=== PATIENT | female | born 1990 | race Caucasian/White ===

== ENCOUNTER 2016-09-09 19:22 | Outpatient (CLI) | payer MEDICAID ==
[2016-09-09 19:59] LABS: AMORPHOUS SEDIMENT,URINE TRACE /HPF; APPEARANCE,URINE CLOUDY; BILIRUBIN,URINE NEGATIVE (NEGATIVE); GLUCOSE, URINE NEGATIVE (NEGATIVE); KETONES,URINE NEGATIVE (NEGATIVE); LEUKOCYTE ESTERASE,URINE NEGATIVE (NEGATIVE); NITRITE,URINE NEGATIVE (NEGATIVE); PROTEIN,URINE NEGATIVE (NEGATIVE); URINE SPECIFIC GRAVITY 1.014; UROBILINOGEN,URINE NEGATIVE mg/dL (<2.0)
--- NOTE | 2016-09-09 20:01 | L&D Flow Sheet ---
LD Flowsheet Datetime Report Generated by CPN: 09/09/2016 20:00 Datetime: 09/09/2016 19:52 Pain Pain Scale: 2 (Marcelina Rosen RN) Pain Presence: Intermittent (Marcelina Rosen RN) Pain Type: Cramping; Contraction (Marcelina Rosen RN) Pain Location: Abdomen (Marcelina Rosen RN) Pain Goal: 0 (Marcelina Rosen RN) Pain Relief Measures: Comfort Measures (Marcelina Rosen RN) Pain Coping: Talking Through Contractions; Breathing Through Contractions (Marcelina [facility], RN) Vaginal Exam Vaginal Bleeding: None ([facility], RN) Maternal Assessment Level [facility] Consc[facility]: [facility] DTR's/Clonus: DTRs 1+; No Clonus ([facility], RN) Headache: Frontal ([facility], ) Breath Sounds, Left: Clear and Equal ([facility], ) Breath Sounds, Right: Clear and Equal ([facility], RN) Nausea/Vomiting: Denies ([facility], ) RUQ Epigastric Pain: Denies ([facility], ) Teaching Instructional Method: Verbal; Patient Instructed; Family/Support Person Instructed; Verbalized Understanding (Marcelina Rosen RN) Plan of Care: Plan of Care Discussed (Marcelina Rosen RN) Unit Routine: [place] to Room; Call Mello; Bed; Visiting Policy; Waiting Areas; Infant Security; Phone/Cell Phone Use; Photography; Unit Personnel; Handwashing; Flu/Illness Precautions; Monitoring; Safety/Fall Risk Prevention; Bathroom Privileges (Marcelina Rosen RN) Communication LaborFlag: Antepartum (QS system process) Datetime: 09/09/2016 19:51 Vital Signs NBP Sys/Maribeth/Mean (mmHg): 100 (QS system process) : 64 (QS system process) : 77 (QS system process) Pulse: 94 (QS system process) Communication LaborFlag: Antepartum (QS system process)
[2016-09-09 20:16] LABS: URINE BARBITURATES SCREEN NEGATIVE; URINE METHADONE SCREEN NEGATIVE; URINE PHENCYCLIDINE SCREEN NEGATIVE
[2016-09-09] MEDS ORDERED: ACETAMINOPHEN 325 MG TABLET PO ONE (20:17)
[2016-09-09] MEDS ORDERED: ACETAMINOPHEN 325 MG TABLET ONE (20:20)
--- NOTE | 2016-09-10 04:46 | L&D Discharge Summary ---
OB Discharge Summary Datetime Report Generated by CPN: 09/10/2016 04:45 DISCHARGE DIAGNOSIS Diagnosis/Symptoms: False Labor Diagnoses/Symptoms Other: vagianl bleeding stopped Treatment/Procedures Other: Ultrasound Gestation: 30.1 Number of Babies in Womb: 1 Parity: 2 DIET/ACTIVITY/RESTRICTIONS Diet: Regular Activity: Normal Activity Activity Restrictions: No Exercising; No Lifting; Minimize Walking; Minimize Stair Climbing; No Sexual Activity; Nothing in Vagina - [place], Tampons, [place] TEACHING/INSTRUCTIONS/REFERRALS Instructions Given To: Patient and mother Instructions Understood: Patient Verbalized Understanding; Support Person Verbalized Understanding Referrals: None Educational Materials- Other: Kick counts Dehydration DISCHARGE INFORMATION Discharged AMA: No Discharge Date/Time: 09/09/2016 20:37 Discharged To: Home Discharge Provider Name: DrGlory Vogel Accompanied By: Mother Discharge Method: Wheelchair Condition: Stable FOLLOW UP INFORMATION Follow Up With: [facility] Follow Up On: As Scheduled Follow Up Phone Number: [facility] - Comments: Discussed kick counts, dehydration and signs and symptoms of when to return to office or hospital with patient and mother. Patient and mother verbalized understanding. Discussed positive THC in urine with patient and mother and how this contributes to contractions and cramping with . Patient and mother verbalized understanding. Patient discharged home for false labor via wheelchair in stable condition. GENERAL INSTR-CALL PROVIDER IF: Contractions: Contractions or cramps become more frequent than 8 in one hour or 4 in 20 minutes; Regular painful contractions every 5 minutes or less for one hour. Time your contractions from the beginning of one to the beginning of the next Pressure: Pressure in your vagina or lower abdomen that may feel like the baby is pushing down Period Like Cramps: Period-like cramps or low dull backache that may come and go Cramps/Diarrhea: Abdominal cramps that may be accompanied by diarrhea Gush of Fluid/Blood: Gush of fluid or blood from your vagina (it is normal to have spotting after vaginal exam or intercourse) Vaginal Discharge: Change in the type or amount of vaginal discharge Decreased Movement: Your baby is not moving as much as usual- 4 movements in 1 hour after drinking and resting on side Temperature: Temperature greater than 100.0(F) orally
--- NOTE | 2016-09-10 04:46 | Antepartum Discharge Summary ---
Antepartum DC Datetime Report Generated by CPN: 09/10/2016 04:45 DIET/ACTIVITY/RESTRICTIONS Diet: Regular (09/09/2016 20:46:Marcelina Rosen, RN) Activity: Normal Activity (09/09/2016 20:46:Marcelina , RN) TEACHING/INSTRUCTIONS/REFERRALS Instructions Given To: Patient and mother (09/09/2016 20:46:Marcelina , RN) Instructions Understood: Patient Verbalized Understanding; Support Person Verbalized Understanding (09/09/2016 20:46:Marcelina Rosen RN) Referrals: None (09/09/2016 20:46:Marcelina Rosen RN) Educational Materials- Other: Kick counts Dehydration (09/09/2016 20:46:Marcelina Rosen RN) DISCHARGE INFORMATION Discharged AMA: No (09/09/2016 20:46:Marcelina Rosen RN) Discharge Date/Time: 09/09/2016 20:37 (09/09/2016 20:46:Marcelina Rosen RN) Discharged To: Home (09/09/2016 20:46:Marcelina Rosen RN) Discharge Provider Name: Dr. Vogel (09/09/2016 20:46:Marcelina Rosen RN) Accompanied By: Mother (09/09/2016 20:46:Marcelina Rosen RN) Discharge Method: Wheelchair (09/09/2016 20:46:Marcelina Rosen RN) Condition: Stable (09/09/2016 20:46:Marcelina Rosen RN) FOLLOW UP INFORMATION Follow Up With: [facility] (09/09/2016 20:46:Marcelina Rosen RN) Follow Up On: As Scheduled (09/09/2016 20:46:Marcelina Rosen RN) Follow Up Phone Number: [facility] - (09/09/2016 20:46:Marcelina Rosen RN) Comments: Discussed kick counts, dehydration and signs and symptoms of when to return to office or hospital with patient and mother. Patient and mother verbalized understanding. Discussed positive THC in urine with patient and mother and how this contributes to contractions and cramping with . Patient and mother verbalized understanding. Patient discharged home for false labor via wheelchair in stable condition. (09/09/2016 20:46:Marcelina Rosen RN) GENERAL INSTR-CALL PROVIDER IF: Contractions: Contractions or cramps become more frequent than 8 in one hour or 4 in 20 minutes; Regular painful contractions every 5 minutes or less for one hour. Time your contractions from the beginning of one to the beginning of the next (09/09/2016 20:46:Marcelina Rosen RN) Pressure: Pressure in your vagina or lower abdomen that may feel like the baby is pushing down (09/09/2016 20:46:Marcelina Rosen RN) Period Like Cramps: Period-like cramps or low dull backache that may come and go (09/09/2016 20:46:Marcelina Rosen RN) Cramps/Diarrhea: Abdominal cramps that may be accompanied by diarrhea (09/09/2016 20:46:Marcelina Rosen RN) Gush of Fluid/Blood: Gush of fluid or blood from your vagina (it is normal to have spotting after vaginal exam or intercourse) (09/09/2016 20:46:Marcelina Rosen RN) Vaginal Discharge: Change in the type or amount of vaginal discharge (09/09/2016 20:46:Marcelina Rosen RN) Decreased Movement: Your baby is not moving as much as usual- 4 movements in 1 hour after drinking and resting on side (09/09/2016 20:46:Marcelina Rosen RN) Temperature: Temperature greater than 100.0(F) orally (09/09/2016 20:46:Marcelina Rosen RN) Hypertension Signs/Symptoms: Severe headache which is not relieved 30 minutes after taking Tylenol(Acetaminophen); Blurry vision or spots before your eyes; Severe heartburn or pain on the upper right side of your abdomen that is not relieved by an antacid; Increased swelling in your face, hands or feet (09/09/2016 20:46:Marcelina Rosen RN) Urinary Output: Decreased urinary output or dark colored urine (09/09/2016 20:46:Marcelina Rosen RN)
--- NOTE | 2016-09-10 04:46 | L&D Current Admission ---
Current Admit Datetime Report Generated by CPN: 09/10/2016 04:45 ADMISSION INFORMATION Chief Complaint: Contractions (09/09/2016 19:52:Marcelina Rosen, MIRA)
--- NOTE | 2016-09-10 04:46 | L&D Flow Sheet ---
LD Flowsheet Datetime Report Generated by CPN: 09/10/2016 04:45 Datetime: 09/09/2016 20:33 Patient Care Patient Care Comments: Discussed positive THC in urine with patient and mother and how THC causes contractions and cramping; patient and mother verbalized understanding. (Marcelina Field, RN) Datetime: 09/09/2016 20:32 Additional Nursing Comments: Pt is okay for discharge. F/U in office as scheduled. Not in labor. (Rita Pires RN) Datetime: 09/09/2016 20:28 Communication Communication: RN Reviewed Strip; Call/Page Placed to Provider (Marcelina Rosen RN) Communication Comments: Informed Dr. Vogel of patient's complaint of 8 out of 10 for pain with last contraction; orders were drink lots of fluid, give Tylenol and if pain continues followup with office in morning. (Marcelina Rosen RN) Datetime: 09/09/2016 20:25 Patient Care Patient Care Comments: Discussed kick counts and dehydration with patient and mother; both verbalized understanding. (Marcelina Field, RN) Datetime: 09/09/2016 20:23 Uterine Activity Monitor Mode: External; Palpation (Marcelina Field, RN) Frequency (min): 5-6 (Marcelina Field, RN) Quality: Mild (Marcelina Field, RN) Duration (sec): 50-90 (Marcelina Field, RN) Resting Tone ([place]): Relaxed (Marcelina Field, RN) Assessment A Monitor Mode: External US ([facility], RN) FHR Baseline Rate : 130 ([facility], RN) Variability: Moderate 6-25 bpm [facility] Accelerations: 15X15 ([facility], RN) Decelerations: None (Marcelina Field, RN) Datetime: 09/09/2016 20:21 Vital Signs NBP Sys/Maribeth/Mean (mmHg): 111 (QS system process) : 63 (QS system process) : 81 (QS system process) Pulse: 92 (QS system process) LaborFlag: Antepartum (QS system process) Datetime: 09/09/2016 20:07 Communication Communication: RN Reviewed Strip; Call/Page Placed to Provider (Marcelina Rosen RN) Communication Comments: Orders received for Tylenol 650 mg PO for pain. (Marcelina Rosen RN) Communication Comments: Orders received to keep patient on monitor for 20 minutes and discharge home for false labor. (Marcelina Rosen RN) Communication Comments: Informed Dr. Vogel of patient's complaint, history, urine results and FHR/Contractions ([facility]) Datetime: 09/09/2016 19:52 Pain Pain Scale: 2 ([facility]) Pain Presence: Intermittent ([facility]) Pain Type: Cramping; Contraction ([facility]) Pain Location: Abdomen ([facility]) Pain Goal: 0 ([facility]) Pain Relief Measures: Comfort Measures ([facility]) Pain Coping: Talking Through Contractions; Breathing Through Contractions ([facility]) Vaginal Exam Vaginal Bleeding: None (Marcelina Field, RN) Maternal Assessment Level of Consciousness: Fully Conscious (Marcelina Field, RN) DTR's/Clonus: DTRs 1+; No Clonus (Marcelina Field, RN) Headache: Frontal (Marcelina Field, RN) Breath Sounds, Left: Clear and Equal (Marcelina Field, RN) Breath Sounds, Right: Clear and Equal (Marcelina Field, RN) Nausea/Vomiting: Denies (Marcelina Field, RN) RUQ Epigastric Pain: Denies (Marcelina Field, RN) Teaching Instructional Method: Verbal; Patient Instructed; Family/Support Person Instructed; Verbalized Understanding (Marcelina Rosen RN) Plan of Care: Plan of Care Discussed (Marcelina Rosen RN) Unit Routine: [place] to Room; Call Mello; Bed; Visiting Policy; Waiting Areas; Infant Security; Phone/Cell Phone Use; Photography; Unit Personnel; Handwashing; Flu/Illness Precautions; Monitoring; Safety/Fall Risk Prevention; Bathroom Privileges (Marcelina , RN) LaborFlag: Antepartum (QS system process) Datetime: 09/09/2016 19:51 Vital Signs NBP Sys/Maribeth/Mean (mmHg): 100 (QS system process) : 64 (QS system process) : 77 (QS system process) Pulse: 94 (QS system process) LaborFlag: Antepartum (QS system process)
--- NOTE | 2016-09-10 04:46 | L&D Admission Assessment ---
LD ADM ASMT Datetime Report Generated by CPN: 09/10/2016 04:45 PATIENT ASSESSMENT Assessment Type: Triage (09/09/2016 19:52:Marcelina Field, RN) WEIGHT Weight (lb): 207 (09/09/2016 20:17:QS system process) Weight (kg): 94.1 (09/09/2016 20:17:QS system process) BMI: 35.5 (09/09/2016 20:17:QS system process) PAIN Pain Scale: 2 (09/09/2016 19:52:Marcelina Rosen, RN) Pain Presence: Intermittent (09/09/2016 19:52:Marcelina Rosen, RN) Pain Type: Cramping; Contraction (09/09/2016 19:52:Marcelina , RN) Pain Location: Abdomen (09/09/2016 19:52:Marcelina , RN) Pain Goal: 0 (09/09/2016 19:52:Marcelina Rosen, RN) Pain Related to Contraction: Unsure (09/09/2016 19:52:Marcelina Field, RN) CONTRACTIONS Frequency (min): 5-6 (09/09/2016 20:23:Marcelina Field, RN) Duration (sec): 50-90 (09/09/2016 20:23:Marcelina Field, RN) Quality: Mild (09/09/2016 20:23:Marcelina Field, RN) Resting Tone [place]: Relaxed (09/09/2016 20:23:Marcelina Field, RN) NEURO Level of Consciousness: Fully Conscious (09/09/2016 19:52:Marcelina Rosen RN) DTR's/Clonus: DTRs 1+; No Clonus (09/09/2016 19:52:Marcelina Rosen RN) Headache: Frontal (09/09/2016 19:52:Marcelina Rosen RN) Dizziness: No (09/09/2016 19:52:Marcelina Rosen RN) Blurred Vision: No (09/09/2016 19:52:Marcelina Rosen RN) Extremity Numbness/Tingling : None (09/09/2016 19:52:Marcelina Rosen RN) Extremity Movement: Full Range of Motion (09/09/2016 19:52:Marcelina Rosen RN) CARDIOVASCULAR Heart Rhythm: Regular (09/09/2016 19:52:Marcelina Rosen RN) Nailbeds: [place] (09/09/2016 19:52:Marcelina Rosen RN) Capillary Refill: Less than 3 Seconds (09/09/2016 19:52:Marcelina Rosen RN) Lower Extremities Edema: None (09/09/2016 19:52:Marcelina Rosen RN) Lower Extremities Edema Degree: None (09/09/2016 19:52:Marcelina Rosen RN) Upper Extremities Edema: None (09/09/2016 19:52:Marcelina Rosen RN) Upper Extremities Edema Degree: None (09/09/2016 19:52:Marcelina Rosen RN) Facial Edema: None (09/09/2016 19:52:Marcelina Rosen RN) Lucio's Sign Left Leg: Negative (09/09/2016 19:52:Marcelina Rosen RN) Lucio's Sign Right Leg: Negative (09/09/2016 19:52:Marcelina Rosen RN) DVT RISK ASSESSMENT DVT Risk Age: Age less than 41 years (09/09/2016 19:52:Marcelina Rosen RN) DVT Risk BMI: BMI<31 (09/09/2016 19:52:Marcelina Rosen RN) DVT Risk Surgery: History of Prior Major Surgery (09/09/2016 19:52:Marcelina Rosen RN) DVT Risk Other: Women Only- or (<1 month) (09/09/2016 19:52:Marcelina oRsen RN) DVT Risk Total: 2 (09/09/2016 19:52:QS system process) DVT Risk Text: Moderate Risk (10-20%) - Consider stockings, compresssion device, pharmacological therapy per hospital policy (09/09/2016 19:52:QS system process) RESPIRATORY Respiratory Effort: Unlabored; Regular Rhythm; Equal Expansion (09/09/2016 19:52:Marcelina Rosen RN) Breath Sounds, Left: Clear and Equal (09/09/2016 19:52:Marcelina Rosen RN) Breath Sounds, Right: Clear and Equal (09/09/2016 19:52:Marcelina Rosen RN) Cough Productivity: None (09/09/2016 19:52:Marcelina Rosen RN) GASTROINTESTINAL Nausea/Vomiting: Denies (09/09/2016 19:52:Marcelina Rosen RN) Bowel Sounds: Normoactive (09/09/2016 19:52:Marcelina Rosen RN) RUQ Epigastric Pain: Denies (09/09/2016 19:52:Marcelina Rosen RN) Bowel Patterns: Soft, Formed Stool (09/09/2016 19:52:Marcelina Rosen RN) Hemorrhoids: None (09/09/2016 19:52:Marcelina Rosen RN) Diet Type: Regular diet (09/09/2016 19:52:Marcelina Rosen RN) Last Meal: 09/09/2016 18:30 (09/09/2016 19:52:Marcelina Rosen RN) GENITOURINARY Bladder: Nondistended (09/09/2016 19:52:[facility]) Frequency of Urination: No (09/09/2016 19:52:[facility]) Urination Burning: No (09/09/2016 19:52:[facility]) CVA Tenderness: No (09/09/2016 19:52:[facility]) INTEGUMENTARY Skin Color: Normal for Race (09/09/2016 19:52:[facility]) Skin Temperature: Warm (09/09/2016 19:52:[facility]) Skin Moisture: Dry (09/09/2016 19:52:[facility]) INO SKIN ASSESSMENT Ino Scale Sensory Perception: No Impairment- Responds to verbal commands. Has no sensory deficit which would limit ability to feel or voice pain or discomfort (09/09/2016 19:52:Marcelina Rosen RN) Ino Scale Moisture: Rarely Moist- Skin is usually dry. Linen only requires changing at routine intervals (09/09/2016 19:52:Marcelina Rosen RN) Ino Scale Activity: Walks Frequently- Walks outside the room at least twice a day and inside room at least every 2 hours during the day. (09/09/2016 19:52:Marcelina Rosen RN) Ino Scale Mobility: No Limitations- Makes major and frequent changes in position without assistance (09/09/2016 19:52:Marcelina Rosen RN) Ino Scale Nutrition: Excellent- Eats most of every meal. Never refuses a meal. Usually eats a total of 4 or more servings of meat and dairy products. Occasionally eats between meals. Does not require supplementation (09/09/2016 19:52:Marcelina Rosen RN) Ino Scale Friction and Shear: No Apparent Problem- Moves in bed and in chair independently and has sufficient muscle strength to lift up completely during move. Maintains good position in bed or chair at all times (09/09/2016 19:52:Marcelina Rosen RN) Ino Scale Total: 23 (09/09/2016 19:52:QS system process) Ino Scale Risk: No Risk of Pressure Ulcer Noted at this Time (09/09/2016 19:52:QS system process) SUPPORT Family Support: Family supportive (09/09/2016 19:52:Marcelina Rosen RN) Emotional State: Calm/Relaxed (09/09/2016 19:52:Marcelina Rosen RN) SAFETY Call Mello Within Reach: Yes (09/09/2016 19:52:Marcelina Rosen RN) Side Rails Up: Yes (09/09/2016 19:52:Marcelina Rosen RN) Bed Wheels Locked: Yes (09/09/2016 19:52:Marcelina Rosen RN) Arm Bands Present: Yes (09/09/2016 19:52:Marcelina Rosen RN) Isolation: [place] (09/09/2016 19:52:Marcelina Rosen RN) FALL SCREEN Fall Risk History of Falling: (0) No (09/09/2016 19:52:Marcelina Rosen RN) Fall Risk Secondary Diagnosis: (0) No (09/09/2016 19:52:Marcelina Rosen RN) Fall Risk Ambulatory Aid: (0) None/Bedrest/Wheelchair/Nurse Assist (09/09/2016 19:52:Marcelina Rosen RN) Fall Risk IV Therapy: (0) No (09/09/2016 19:52:Marcelina Rosen RN) Fall Risk Gait: (0) Normal/Bedrest/Immobile (09/09/2016 19:52:Marcelina Rosen RN) Fall Risk Mental Status: (0) Oriented to Own Ability (09/09/2016 19:52:Marcelina Rosen RN) Fall Risk Score: 0 (09/09/2016 19:52:QS system process) Fall Risk Score Definition: No Risk: No action required (09/09/2016 19:52:QS system process) RECENT TRAVEL/INFECTIOUS DISEASE Recent Exp Communicable Disease: No (09/09/2016 19:52:Marcelina Rosen RN) Cough or Fever: No (09/09/2016 19:52:Marcelina Rosen RN) Foreign Travel Past 10 Days: No (09/09/2016 19:52:Marcelina Rosen RN) Open Wounds or Sores: No (09/09/2016 19:52:Marcelina Rosen RN) Prior Antibiotic Resistance Tx: No (09/09/2016 19:52:Marcelina Rosen RN) Cultures Obtained: Not Applicable (09/09/2016 19:52:Marcelina Rosen RN) Isolation Initiated: No (09/09/2016 19:52:Marcelina Rosen RN) BABY A FHR Baseline Rate (bpm) Baby A: 130 (09/09/2016 20:23:Marcelina Rosen RN) Variability Baby A: Moderate 6-25 bpm (09/09/2016 20:23:Marcelina Rosen RN) Accelerations Baby A: 15X15 (09/09/2016 20:23:Marcelina Rosen RN) Decelerations Baby A: None (09/09/2016 20:23:Marcelina Rosen RN)
--- NOTE | 2016-09-10 04:46 | L&D General Admission ---
General Admit Datetime Report Generated by CPN: 09/10/2016 04:45 INFORMATION Para: 2 (09/09/2016 20:46:Marcelinaheidi Rosen, RN) Baby, Number in Womb: 1 (09/09/2016 20:46:Marcelina , RN) CARE Height (in): 64 (09/09/2016 20:17:QS system process)
--- NOTE | 2016-09-14 10:08 | Non Stress Test Report ---
Non Stress Test Datetime Report Generated by N: 09/14/2016 10:08 EGA NST: 30.1 Indication for Study: Ordered by Provider Indication for Study (NST) Other: Labor check Monitor Explained: Monitor Explained; Test Explained; Patient Verbalized Understanding Time on Monitor: 09/09/2016 19:54 Time off Monitor: 09/09/2016 20:23 NST Duration: 29 NST Interventions: PO Hydration; Reposition Patient Physician Notified NST: Dr. Vogel Movement : Present Contraction Frequency : 5-6 FHR Baseline : 130 Accelerations : 15X15 Decelerations : None Variability : Moderate 6-25bpm NST Review: Meets Criteria for Reactive NST NST Results: Reactive
== END 2016-09-09 20:37 | disposition home or self-care (01) ==
LOC: LC 19:22
PROVIDERS: ATTEND Obstetrics & Gynecology
PROC: 4A1HXCZ Monitoring of Products of Conception, Cardiac Rate, External Approach (ICD-10-PCS; principal; 2016-09-09)
DX: Z34.93 Encounter for supervision of normal pregnancy, unspecified, third trimester (principal); Z3A.30 30 weeks gestation of pregnancy
CPT/HCPCS: 59025; 81001; 80307; J3490

== ENCOUNTER 2016-10-19 10:06 | Emergency (ER) | payer OTHER, MEDICAID ==
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
[2016-10-19 11:10] VITALS: BP 117/72
== END 2016-10-19 10:35 | disposition admitted as inpatient to this hospital (09) ==
LOC: ER 10:06
DX: O26.893 Other specified pregnancy related conditions, third trimester (principal); R10.31 Right lower quadrant pain; V49.40XA Driver injured in collision with unspecified motor vehicles in traffic accident, initial encounter; O99.333 Smoking (tobacco) complicating pregnancy, third trimester; F17.200 Nicotine dependence, unspecified, uncomplicated; O24.113 Pre-existing type 2 diabetes mellitus, in pregnancy, third trimester; E11.9 Type 2 diabetes mellitus without complications; Z3A.36 36 weeks gestation of pregnancy; Z91.040 Latex allergy status; Z88.8 Allergy status to other drugs, medicaments and biological substances
CPT/HCPCS: 99284

== ENCOUNTER 2016-10-19 10:35 | Outpatient (CLI) | payer OTHER, MEDICAID ==
[2016-10-19 11:17] LABS: APPEARANCE,URINE SLIGHTLY-CLOUDY; BILIRUBIN,URINE NEGATIVE (NEGATIVE); GLUCOSE, URINE NEGATIVE (NEGATIVE); KETONES,URINE NEGATIVE (NEGATIVE); LEUKOCYTE ESTERASE,URINE NEGATIVE (NEGATIVE); NITRITE,URINE NEGATIVE (NEGATIVE); PROTEIN,URINE NEGATIVE (NEGATIVE); URINE SPECIFIC GRAVITY 1.008; UROBILINOGEN,URINE NEGATIVE mg/dL (<2.0)
[2016-10-19 11:32] LABS: URINE BARBITURATES SCREEN NEGATIVE; URINE METHADONE SCREEN NEGATIVE; URINE OPIATES LOW NEGATIVE; URINE PHENCYCLIDINE SCREEN NEGATIVE
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
[2016-10-19 12:47] LABS: CHLAM PCR NOT DETECTED (NOT DETECT)
== END 2016-10-19 13:17 | disposition home or self-care (01) ==
LOC: LC 10:35
PROVIDERS: ATTEND Obstetrics & Gynecology
PROC: 4A1HXCZ Monitoring of Products of Conception, Cardiac Rate, External Approach (ICD-10-PCS; principal; 2016-10-19)
DX: O9A.213 Injury, poisoning and certain other consequences of external causes complicating pregnancy, third trimester (principal); S30.1XXA Contusion of abdominal wall, initial encounter; O26.893 Other specified pregnancy related conditions, third trimester; R10.9 Unspecified abdominal pain; V49.9XXA Car occupant (driver) (passenger) injured in unspecified traffic accident, initial encounter; Z3A.35 35 weeks gestation of pregnancy
CPT/HCPCS: 59025; 81005; 80307; 87491; 87591; G0480 ×2

== ENCOUNTER 2016-10-20 20:31 | Emergency (ER) | payer OTHER, MEDICAID ==
[2016-10-20] MEDS ORDERED: ACETAMINOPHEN 325 MG TABLET PO ONE (21:00)
[2016-10-20] MEDS ORDERED: PYRIDOXINE HCL 50 MG TABLET PO ONE (21:00)
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
[2016-10-21 04:15] VITALS: BP 132/87
== END 2016-10-21 04:39 | disposition left against medical advice (07) ==
LOC: ER 20:31
DX: M54.2 Cervicalgia (principal); M25.519 Pain in unspecified shoulder; R11.0 Nausea; F17.210 Nicotine dependence, cigarettes, uncomplicated; V87.7XXA Person injured in collision between other specified motor vehicles (traffic), initial encounter
CPT/HCPCS: 99281; J3490

== ENCOUNTER 2016-10-29 13:34 | Outpatient (CLI) | payer MEDICAID ==
--- NOTE | 2016-10-29 13:46 | Non Stress Test Report ---
Non Stress Test Datetime Report Generated by CPN: 10/29/2016 13:46 DEMOGRAPHIC EGA NST: 35.6 EGA NST: 30.1 INDICATION Indication for Study: Ordered by Provider Indication for Study: Ordered by Provider Indication for Study (NST) Other: Labor check MONITORING Monitor Explained: Monitor Explained; Test Explained; Patient Verbalized Understanding Monitor Explained: Monitor Explained; Test Explained; Patient Verbalized Understanding Time on Monitor: 10/19/2016 11:55 Time on Monitor: 09/09/2016 19:54 Time off Monitor: 10/19/2016 13:00 Time off Monitor: 09/09/2016 20:23 NST Duration: 65 NST Duration: 29 NST INTERVENTIONS NST Interventions: PO Hydration NST Interventions: PO Hydration; Reposition Patient Physician Notified NST: Eyad CNM Physician Notified NST: Dr. Vogel BABY A: [id number] BABY A Movement : Present Movement : Present Contraction Frequency : none Contraction Frequency : 5-6 FHR Baseline : 125 FHR Baseline : 130 Accelerations : 15X15 Accelerations : 15X15 Decelerations : None Decelerations : None Variability : Moderate 6-25bpm Variability : Moderate 6-25bpm NST Review: Meets Criteria for Reactive NST NST Review: Meets Criteria for Reactive NST NST Review and Verified By : Caty Sauceda RN NST Results: Reactive NST Results: Reactive NST REPORT Report Trigger: Send Report
--- NOTE | 2016-10-29 14:01 | L&D Flow Sheet ---
LD Flowsheet Datetime Report Generated by CPN: 10/29/2016 14:00 Datetime: 10/29/2016 13:59 Respirations: 18 (Jessie Bellavance, RNC) Temperature (F): 97.8 (Jessie Bellavance, RNC) Temperature (C): 36.6 (QS system process) Temperature Route: Oral (Jessie Bellavance, RNC) Uterine Activity Monitor Mode: External (Jessie Bellavance, RNC) Monitor Interventions for UA: [place] Adjusted (Jessie Bellavance, RNC) Communication LaborFlag: Antepartum (QS system process) Datetime: 10/29/2016 13:55 Vital Signs NBP Sys/Maribeth/Mean (mmHg): 105 (QS system process) : 61 (QS system process) : 75 (QS system process) Pulse: 76 (QS system process) Communication LaborFlag: Antepartum (QS system process) Datetime: 10/29/2016 13:48 Maternal Assessment Level of Consciousness: Fully Conscious (Jessie Bellavance, RNC) DTR's/Clonus: DTRs 2+; No Clonus (Jessie Bellavance, RNC) Headache: Denies (Jessie Bellavance, RNC) Breath Sounds, Left: Clear and Equal (Jessie Bellavance, RNC) Breath Sounds, Right: Clear and Equal (Jessie Bellavance, RNC) Nausea/Vomiting: Denies (Jessie Bellavance, RNC) RUQ Epigastric Pain: Denies (Jessie Bellavance, RNC)
[2016-10-29 14:36] LABS: APPEARANCE,URINE CLEAR; BILIRUBIN,URINE NEGATIVE (NEGATIVE); GLUCOSE, URINE NEGATIVE (NEGATIVE); KETONES,URINE NEGATIVE (NEGATIVE); LEUKOCYTE ESTERASE,URINE NEGATIVE (NEGATIVE); NITRITE,URINE NEGATIVE (NEGATIVE); PROTEIN,URINE NEGATIVE (NEGATIVE); URINE SPECIFIC GRAVITY 1.004; UROBILINOGEN,URINE NEGATIVE mg/dL (<2.0)
[2016-10-29 14:51] LABS: URINE BARBITURATES SCREEN NEGATIVE; URINE METHADONE SCREEN NEGATIVE; URINE OPIATES LOW NEGATIVE; URINE PHENCYCLIDINE SCREEN NEGATIVE
--- NOTE | 2016-10-29 16:01 | L&D Flow Sheet ---
LD Flowsheet Datetime Report Generated by CPN: 10/29/2016 16:00 Datetime: 10/29/2016 15:40 NBP Sys/Maribeth/Mean (mmHg): 112 (QS system process) : 64 (QS system process) : 81 (QS system process) Pulse: 88 (QS system process) LaborFlag: Antepartum (QS system process) Datetime: 10/29/2016 14:30 Monitor Mode: External (Jessie Bellavance, RNC) Monitor Interventions for UA: [place] Adjusted (Jessie Bellavance, RNC) Frequency (min): 7+ (Jessie Bellavance, RNC) Quality: Mild/Moderate (Jessie Bellavance, RNC) Duration (sec): 50-60 (Jessie Bellavance, RNC) Duration Criteria: Less than Two 120 Second Contractions (Jessie Bellavance, RNC) Pattern: Normal: <= 5 Contractions in 10 Minutes (Jessie Bellavance, RNC) Resting Tone (Palpate): Relaxed (Jessie Bellavance, RNC) Monitor Mode: External US (Jessie Bellavance, RNC) Monitor Interventions for FHR: Ultrasound Adjusted (Jessie Bellavance, RNC) FHR Baseline Rate : 130 (Jessie Bellavance, RNC) Variability: Moderate 6-25 bpm (Jessie Bellavance, RNC) Accelerations: 15X15 (Jessie Bellavance, RNC) Decelerations: None (Jessie Bellavance, RNC) Datetime: 10/29/2016 14:16 Monitor Mode: External (Jessie Bellavance, RNC) Monitor Interventions for UA: [place] Adjusted (Jessie Bellavance, RNC)
== END 2016-10-29 16:35 | disposition home or self-care (01) ==
LOC: LC 13:34
PROVIDERS: ATTEND Obstetrics & Gynecology
PROC: 4A1HXCZ Monitoring of Products of Conception, Cardiac Rate, External Approach (ICD-10-PCS; principal; 2016-10-29)
DX: O47.03 False labor before 37 completed weeks of gestation, third trimester (principal); Z3A.35 35 weeks gestation of pregnancy
CPT/HCPCS: 80307; 81001

== ENCOUNTER 2016-11-11 05:58 | Inpatient (IN) | payer MEDICAID, OTHER ==
[2016-11-10 12:51] LABS: ABSOLUTE EOSINOPHILS # (AUTO) 0.1 10^3/uL (0.0-0.6); ABSOLUTE LYMPHOCYTES (AUTO) 1.9 10^3/uL (0.5-4.7); ABSOLUTE MONOCYTES (AUTO) 0.9 10^3/uL (0.1-1.4); ABSOLUTE NEUT (AUTO) 8.9 10^3/uL (1.7-8.2); BASOPHILS % (AUTO) 0.1 % (0-2); EOSINOPHILS % (AUTO) 0.7 % (0-6); HEMATOCRIT 32.7 % (36.0-47.0); HEMOGLOBIN 10.6 g/dL (12.0-15.5); HGB HCT DIFFERENCE -0.9; LYMPHOCYTES % (AUTO) 16.2 % (13-45); MEAN CORPUSCULAR HGB CONC 32.4 g/dL (32.0-36.0); MEAN CORPUSCULAR VOLUME 80 fl (80-97); MONOCYTES % (AUTO) 7.6 % (3-13); RED BLOOD COUNT 4.08 10^6/uL (3.72-5.28); RED CELL DISTRIBUTION WIDTH 16.9 % (11.5-14.0); SEGMENTED NEUTROPHILS % (AUTO) 75.4 % (42-78); WHITE BLOOD COUNT 11.8 10^3/uL (4.0-10.5)
[2016-11-10 12:52] LABS: APPEARANCE,URINE SLIGHTLY-CLOUDY; BILIRUBIN,URINE NEGATIVE (NEGATIVE); GLUCOSE, URINE NEGATIVE (NEGATIVE); KETONES,URINE NEGATIVE (NEGATIVE); LEUKOCYTE ESTERASE,URINE NEGATIVE (NEGATIVE); NITRITE,URINE NEGATIVE (NEGATIVE); PROTEIN,URINE NEGATIVE (NEGATIVE); URINE SPECIFIC GRAVITY 1.016; UROBILINOGEN,URINE NEGATIVE mg/dL (<2.0)
[2016-11-10 13:13] LABS: URINE BARBITURATES SCREEN NEGATIVE; URINE METHADONE SCREEN NEGATIVE; URINE OPIATES LOW NEGATIVE; URINE PHENCYCLIDINE SCREEN NEGATIVE
[~2016-11-11 05:58] MED LIST: CEFAZOLIN 2 GM/D5W RTU 2 GM/50 ML RTUPB IV PRN; LACTATED RINGERS 1000 ML IV PRN; LIDOCAINE 0.5% INJ-PF (5 MG/ML) 50 ML SDV SUBCUT PRN; RINGERS SOLUTION,LACTATED 1,000 ML IV PRN
[2016-11-11] MEDS ORDERED: INFLUENZA ADLT QUAD (36MOS+) 2016-17 VAC 0.5 ML SYR IM PRN (06:45)
[2016-11-11] MEDS ORDERED: FENTANYL CITRATE INJ/PF 100 MCG/2 ML AMPUL ONE (09:06)
[2016-11-11] MEDS ORDERED: EPHEDRINE SULFATE INJ 50 MG/1 ML AMPULE ONE (09:06)
[2016-11-11] MEDS ORDERED: OXYTOCIN 10 UNIT/ML VIAL ONE (09:06)
[2016-11-11] MEDS ORDERED: ONDANSETRON HCL INJ/PF 4 MG/2 ML SDV ONE (09:06)
[2016-11-11] MEDS ORDERED: MIDAZOLAM 2 MG/2 ML INJ ONE (09:07)
[2016-11-11] MEDS ORDERED: FENTANYL CITRATE INJ/PF 100 MCG/2 ML AMPUL IV PRN ×3 (10:27)
[2016-11-11] MEDS ORDERED: PROMETHAZINE HCL INJ 25 MG/1 ML VIAL IV PRN ×2 (10:27→11:25)
[2016-11-11] MEDS ORDERED: OXYTOCIN/NORMAL SALINE 20 UNIT/1,000 ML RTUINJ ONE (10:40)
[2016-11-11] MEDS ORDERED: ACETAMINOPHEN 325 MG TABLET PO PRN (11:25)
[2016-11-11] MEDS ORDERED: OXYTOCIN/NORMAL SALINE 1,000 ML IV PRN (11:25)
[2016-11-11] MEDS ORDERED: MEASLES,MUMPS&RUBELLA VACC/PF 0.5 ML VIAL SUBCUT PRN (11:25)
[2016-11-11] MEDS ORDERED: OXYCODONE-ACETAMINOPHEN 5-325 MG TABLET PO PRN (11:25)
[2016-11-11] MEDS ORDERED: SIMETHICONE 80 MG TAB.CHEW PO PRN (11:25)
--- NOTE | 2016-11-11 11:25 | Operative Report ---
Operative Report DATE OF SURGERY: 11/11/16 OPERATION: Primary section via Pfannenstiel incision with Harper bilateral tubal ligation ANESTHESIA: Spinal PROCEDURE: PREOPERATIVE DIAGNOSIS: undelivered at [39+1] weeks, undesired fertility, unstable POSTOPERATIVE DIAGNOSIS: Same as above delivered Procedure: Primary section with low transverse incision and [place] BTL Visual And Stock Associate:[None] Anesthesia: Spinal Anesthesia provider: [Dr. Sanders, Norman Ang, ROTOPRINTER] Estimated blood loss: [600 mL] Urine output: [200 mL] IV fluids: [1200 mL] Complications: [None] Specimens: [None] Findings: [Viable male Apgars 9 and 9, infant weight was 8 lbs. 7 oz. and time of was 1023, normal bilateral fallopian tubes and normal bilateral ovaries, normal uterus. Infant presentation was asynclitic OP direction OP presentation with a very tight nuchal cord and a right leg and foot cord extending from the neck across the body to the foot.] Indications: [26-year-old 061 at 39+1 weeks estimated gestational age with unstable lie and persistent breech presentation presents for primary section. The patient also has undesired fertility and desires to have permanent sterilization. The risks benefits and alternatives to primary section with tubal ligation for permanent sterilization were reviewed with the patient and the patient desired to proceed with planned procedure. The patient had declined external cephalic version] Procedure: The patient was taken to the operating room where spinal anesthesia was obtained and found to be adequate. She was then prepped and draped in the normal sterile fashion and placed in the dorsal supine position with a leftward tilt. A Pfannenstiel skin incision was then made and carried through to the underlying layers of the fascia with the scalpel. The fascia was incised in the midline and the incision extended laterally with the [place] scissors. The superior aspect of the fascial incision was then grasped with Adrian clamps elevated and the underlying rectus muscles dissected off [bluntly]. Attention was then turned to the inferior aspect of the fascial incision which in a similar fashion was grasped, tented up with Kulwinder clamps, and the rectus muscles dissected off [bluntly]. The rectus muscles were then in the midline and the peritoneum at the amount identified and entered [bluntly]. The peritoneal incision was then extended superiorly and inferiorly with good visualization of the bladder. The bladder blade was inserted and the vesicouterine peritoneum identified grasped with Algerian pickups and entered sharply with the Metzenbaum scissors. This incision was then extended laterally with the Metzenbaum scissors and a bladder flap created digitally. The bladder blade was then reinserted and the lower uterine segment incised in a transverse fashion with the scalpel. The uterine incision was then extended bluntly. The bladder blade was removed and the infant's head was delivered from cephalic presentation atraumatically. The nose and mouth were suctioned and the cord doubly clamped and cut. And the was handed off to waiting pediatricians. The placenta was then delivered spontaneously and the uterus exteriorized and cleared of all clots and debris. The uterine incision was then repaired with 1- 0 Vicryl in a running locked fashion. A second layer of the same suture was used to obtain hemostasis via imbrication of the initial layer. The bladder flap was then repaired with 3-0 chromic in a running fashion. The right fallopian tube was identified and followed out to the fimbriated end and the ampullary portion of the fallopian tube isolated with [place]. The utero- ovarian ligament was then opened beneath the ampullary portion of the fallopian tube on the right and Harper bilateral tubal ligation was performed on the right. This procedure was repeated on the left thus removing a 2 cm segment of both fallopian tubes for permanent sterilization. The uterus was returned to the patient's abdomen and Interceed was placed overlying the uterine incision to prevent adhesions. The gutters were cleared of all clots and debris. The rectus muscles were closed in an interrupted fashion with 2-0 Vicryl. All operative sites were noted to be hemostatic. The fascia was reapproximated with 0 Vicryl in a running fashion from each lateral edge to the midline. The skin was closed with 3-0 Monocryl in a running subcuticular fashion with overlying Dermabond for additional dressing as well as wound closure. The patient tolerated the procedure well. Sponge lap needle and instrument counts are correct times 2. 2 g of Ancef were given prior to skin incision. The patient was taken to the recovery area awake and in stable condition.
[2016-11-11] MEDS ORDERED: KETOROLAC TROMETHAMINE INJ/PF 30 MG/1 ML SDV IV SCH (11:30)
[2016-11-11] MEDS: FENTANYL CITRATE INJ/PF 100 MCG/2 ML AMPUL ONE ×2 (11:30→12:25)
[2016-11-11] MEDS ORDERED: ACETAMINOPHEN 100 ML IV ONE (11:59)
[2016-11-11] MEDS ORDERED: KETOROLAC TROMETHAMINE INJ/PF 30 MG/1 ML SDV ONE (12:17)
[2016-11-11] MEDS: HYDROMORPHONE HCL INJ/PF 2 MG/ML AMPULE ONE ×2 (12:40→12:50)
[2016-11-11] MEDS: OXYCODONE-ACETAMINOPHEN 5-325 MG TABLET PO PRN ×3 (13:58→23:49)
[2016-11-11] MEDS: HYDROMORPHONE HCL INJ/PF 2 MG/ML AMPULE IV PRN ×2 (14:47→19:54)
[2016-11-11] MEDS: DOCUSATE SODIUM 100 MG CAPSULE PO SCH (17:12)
[2016-11-11] MEDS ORDERED: RINGERS SOLUTION,LACTATED 1,000 ML IV PRN (17:56)
[2016-11-11] MEDS ORDERED: NICOTINE 21 MG/24 HR PATCH.TD24 TD ONE (21:00)
[2016-11-11] MEDS: KETOROLAC TROMETHAMINE INJ/PF 30 MG/1 ML SDV IV SCH (21:30)
[2016-11-11] MEDS ORDERED: RINGERS SOLUTION,LACTATED 500 ML IV ONE (23:45)
[2016-11-12] MEDS: OXYCODONE-ACETAMINOPHEN 5-325 MG TABLET PO PRN ×3 (04:34→20:24)
[2016-11-12] MEDS: KETOROLAC TROMETHAMINE INJ/PF 30 MG/1 ML SDV IV SCH (06:58)
[2016-11-12 07:14] LABS: HEMATOCRIT 28.8 % (36.0-47.0); HEMOGLOBIN 9.5 g/dL (12.0-15.5); HGB HCT DIFFERENCE -0.3; MEAN CORPUSCULAR HEMOGLOBIN 26.4 pg (27.0-33.4); MEAN CORPUSCULAR VOLUME 80 fl (80-97); RED CELL DISTRIBUTION WIDTH 16.6 % (11.5-14.0)
[2016-11-12] MEDS ORDERED: OXYCODONE HCL IR 5 MG TABLET ONE (09:08)
--- NOTE | 2016-11-12 11:16 | PDOC PROGRESS REPORT ---
Subjective-OB Subjective: Post Delivery Day: 26 year old. Denies any needs at this time. Pt doing well, no complaints. She reports light bleeding, regular diet, + flatus and voiding well. Physical Exam (OB) Vital Signs: Temp Pulse Resp BP Pulse Ox 98.3 F 87 22 H 103/64 99 11/12/16 07:00 11/12/16 07:00 11/12/16 07:00 11/12/16 07:00 11/12/16 07:00 Intake & Output 11/11/16 11/12/16 11/13/16 06:59 06:59 06:59 Intake Total 2975 Output Total 2850 300 Balance 125 -300 Weight 98.43 kg - Incision: Well Approximated Closure Type: durmabond - Lochia Lochia Amount: Small 10-25 ml Lochia Color: Rubra/Red - Abdomen Description: Soft, Round Hernia Present: No Fundal Description: Firm, Midline Fundal Height: u/u - u/2 Objective-Diagnostic Laboratory: 11/12/16 06:32 11/12/16 06:32 WBC 11.0 H RBC 3.60 L Hgb 9.5 L Hct 28.8 L MCV 80 MCH 26.4 L MCHC 33.0 RDW 16.6 H Plt Count 143 L Assessment and Plan(PN) - Assessment and Plan (1) delivery delivered Is this a current diagnosis for this admission?: Yes - Time Spent with Patient Time with patient: Less than 15 minutes Medications reviewed and adjusted accordingly: Yes - Disposition Anticipated Discharge: Home Within: within 24 hours
[2016-11-12] MEDS: PRENATAL VITAMIN W-O CA NO5/FE FUMARATE/FA CAPSULE PO SCH (11:43)
[2016-11-12] MEDS: DOCUSATE SODIUM 100 MG CAPSULE PO SCH ×2 (11:43→17:54)
[2016-11-12] MEDS: IBUPROFEN 800 MG TABLET PO SCH ×2 (12:24→17:54)
[2016-11-12] MEDS ORDERED: HYDROMORPHONE HCL 2 MG TABLET PO ONE (18:00)
[2016-11-12] MEDS ORDERED: HYDROMORPHONE HCL INJ/PF 2 MG/ML AMPULE IV ONE (18:00)
[2016-11-12] MEDS: NICOTINE 21 MG/24 HR PATCH.TD24 TD SCH (22:04)
[2016-11-13] MEDS: IBUPROFEN 800 MG TABLET PO SCH ×4 (00:04→17:08)
[2016-11-13] MEDS: OXYCODONE-ACETAMINOPHEN 5-325 MG TABLET PO PRN ×5 (00:34→18:17)
[2016-11-13] MEDS: DOCUSATE SODIUM 100 MG CAPSULE PO SCH ×2 (09:12→17:09)
[2016-11-13] MEDS: PRENATAL VITAMIN W-O CA NO5/FE FUMARATE/FA CAPSULE PO SCH (09:12)
[2016-11-13] MEDS: NICOTINE 21 MG/24 HR PATCH.TD24 TD SCH (09:14)
[2016-11-13 11:08] VITALS: BP 103/64
--- NOTE | 2016-11-13 11:18 | PDOC DISCHARGE SUMMARY ---
Final Diagnosis Discharge Date: 11/13/16 - Final Diagnosis (1) delivery delivered Is this a current diagnosis for this admission?: Yes Discharge Data - Discharge Medication Home Medications: Pnv95/Iron Fum/Folic Acid [ Caplet] 1 each PO DAILY 03/09/16 Pentosan Polysulfate Sodium [Elmiron 100 mg Capsule] 100 mg PO DAILY 11/10/16 Ibuprofen [Motrin 800 mg Tablet] 800 mg PO Q8HP PRN #60 tablet 11/12/16 Oxycodone HCl/Acetaminophen [Percocet 5-325 mg Tablet] 1 tab PO Q4HP PRN #30 tablet 11/12/16 Reason(s) for Admission: Ceasarean Section-Primary Admission Note: breech Procedures: None Intrapartum Procedure(s): : Low Cervical, Transverse - Diagnosis Test Laboratory: Temp Pulse Resp BP Pulse Ox 97.5 F 92 18 113/67 99 11/12/16 12:00 11/12/16 12:00 11/12/16 12:00 11/12/16 12:00 11/12/16 12:00 11/10/16 11/10/16 11/12/16 11:48 12:00 06:32 RBC 4.08 3.60 L Hgb 10.6 L 9.5 L Hct 32.7 L 28.8 L Urine Opiates Screen NEGATIVE - Discharge information/Instructions Discharge Activity: Activity As Tolerated, Balance Activity w/Rest, Keep Legs Elevated, No Lifting Over 10 Pounds, Pelvic Rest, No tub bath Discharge Diet: Regular Disposition: HOME, SELF-CARE Follow up with: [facility] in: 5, Days
== END 2016-11-13 19:35 | disposition home or self-care (01) | DRG 766 ==
LOC: 2S 05:58 → EEVIPCON 05:58
PROVIDERS: ADMIT Student in an Organized Health Care Education/Training Program; ATTEND Student in an Organized Health Care Education/Training Program
PROC: 0UB70ZZ Excision of Bilateral Fallopian Tubes, Open Approach (ICD-10-PCS; 2016-11-11)
PROC: 4A1HXCZ Monitoring of Products of Conception, Cardiac Rate, External Approach (ICD-10-PCS; 2016-11-11)
PROC: 10D00Z1 Extraction of Products of Conception, Low, Open Approach (ICD-10-PCS; principal; 2016-11-11 09:15)
DX: O64.1XX0 Obstructed labor due to breech presentation, not applicable or unspecified (principal); O69.1XX0 Labor and delivery complicated by cord around neck, with compression, not applicable or unspecified; Z30.2 Encounter for sterilization; Z3A.39 39 weeks gestation of pregnancy; Z37.0 Single live birth
CPT/HCPCS: 1961; 36415; 80307; 81001; 85025; 85027; 86850; 86900; 86901; 88302; 94799; C1765; G0480; J0131; J1170; J1885; J2250; J2405; J2590; J3010; J3490

== ENCOUNTER → 2020-08-11 | Outpatient (CLI) | payer MEDICAID ==
--- NOTE | 2020-08-12 13:43 | RADIOLOGY REPORT (SQ) ---
EXAM DESCRIPTION: MRI LT LOWER JOINT WITHOUT IMAGES COMPLETED DATE/TIME: 08/11/2020 12:44 pm REASON FOR STUDY: S93.492A PAIN IN LEFT ANKLE AND JOINTS OF LEFT FOOT M25.572 PAIN IN LEFT ANKLE AN D JOINTS OF LEFT FOOT COMPARISON: None. TECHNIQUE: Left ankle images acquired and stored on PACS. Multiplanar images include fat sensitive s equences as T1, fluid sensitive sequences as FST2/STIR, cartilage sensitive sequences as FSPD, and gr adient echo sequences. LIMITATIONS: None. FINDINGS: BONE MARROW: Edema in the lateral tubercle of the posterior process of the talus. No defi nitive os trigonum. EFFUSIONS: Increased fluid in the posterolateral joint recess. OSSEOUS ARTICULATIONS: Intact. TALAR DOME AND TIBIAL PLAFOND: Intact. ACHILLES TENDON: Intact without partial or full-thickness tear. No adjacent bursal fluid or edema. TIBIALIS ANTERIOR TENDON: Intact without edema at the 1st MT attachment. TIBIALIS POSTERIOR TENDON: Normal morphology and no edema at the navicular attachment. No tendon gautam th fluid. FLEXOR HALLUCIS LONGUS AND FLEXOR DIGITORUM TENDONS: Normal morphology and no tendon sheath fluid. PERONEUS LONGUS AND BREVIS TENDON: Normal morphology and no tendon sheath fluid. No subluxation. ATFL, CFL, PTFL: Intact. No thickening or signal alteration. No aliza-ligamentous fluid. DELTOID LIGAMENT: Visualized components intact. TARSAL TUNNEL: No masses. No muscle atrophy. SINUS TARSI: No fluid. No reactive marrow edema or erosions. PLANTAR FASCIA: No signal alteration or tear. ADJACENT SOFT TISSUES: No masses. OTHER: No other significant finding. IMPRESSION: Bone contusion lateral tubercle of posterior process of the talus. Increased fluid in t he posterolateral joint recess. No ligament tear identified. TECHNICAL DOCUMENTATION: JOB ID: [id number] 2010 [employer]- All Rights Reserved Reading location - IP/workstation name: [email or web address]
== END ==
LOC: RAD 12:17
PROVIDERS: ATTEND Orthopaedic Surgery Sports Medicine
DX: S93.492A Sprain of other ligament of left ankle, initial encounter (principal); X58.XXXA Exposure to other specified factors, initial encounter